=== PATIENT | male | born 1985 | race Caucasian/White ===

== ENCOUNTER 2017-05-26 16:12 | Emergency (ER) | payer OTHER ==
[~2017-05-26 16:12] MED LIST: FLEXERIL PO; IBUPROFEN 800800 M1 PO; MEDROLDOSEPACK PO; NAPROSYN500 MG PO; NORCO 5-325 TA1 EACH PO; PHENERGAN-CODE120 ML PO; ROBAXIN500 MG PO; VENTOLIN HFA 1818 GM INH; ZPAK PO
== END 2017-05-26 16:50 ==
LOC: M.ERS 16:12
DX: Z02.89 Encounter for other administrative examinations (principal)